=== PATIENT | male | born 1980 | race Caucasian/White ===

== ENCOUNTER 2018-10-04 18:57 | Emergency (ER) | payer SELFPAY ==
[2018-10-04] MEDS ORDERED: ACETAMINOPHEN 325 MG TABLET PO ONE (21:34)
[2018-10-04 22:15] LABS: APPEARANCE,URINE CLOUDY; BILIRUBIN,URINE NEGATIVE (NEGATIVE); COLOR,URINE YELLOW; GLUCOSE, URINE NEGATIVE (NEGATIVE); KETONES,URINE 20 mg/dL (NEGATIVE); LEUKOCYTE ESTERASE,URINE LARGE (NEGATIVE); NITRITE,URINE NEGATIVE (NEGATIVE); PROTEIN,URINE 30 mg/dL (NEGATIVE); URINE SPECIFIC GRAVITY 1.009; UROBILINOGEN,URINE NEGATIVE mg/dL (<2.0)
--- NOTE | 2018-10-04 22:37 | ER Document Report ---
ED General - General Chief Complaint: Pain With Urination Stated Complaint: PAIN WITH URINATION, HEADACHE Time Seen by Provider: 10/04/18 21:28 Notes: Patient is a 38-year-old male who presents to the emergency department with a chief complaint of pain with urination, mucus, headache, and a hard heartbeat. He started noticing the mucus and pain with urination yesterday. He is sexually active with his . He dates that he had a temperature of 100.4 at home. He has a history of kidney stones in the past. He dates that he does not have the same symptoms as he had when he had kidney stones before. He denies any nausea, vomiting, or diarrhea. TRAVEL OUTSIDE OF THE [place] IN LAST 30 DAYS: No - HPI Onset/Duration: Worse - Related Data Allergies/Adverse Reactions: No Known Allergies Allergy (Verified 10/04/18 19:00) Past Medical History - Social History Smoking Status: Unknown if Ever Smoked Chew tobacco use (# tins/day): No Drug Abuse: None Family History: Reviewed & Not Pertinent Patient has suicidal ideation: No Patient has homicidal ideation: No Renal/ Medical History: Reports: Hx Kidney Stones. Denies: Hx Peritoneal Dialysis Past Surgical History: Reports: Hx Appendectomy Review of Systems - Review of Systems Notes: REVIEW OF SYSTEMS: CONSTITUTIONAL : See HPI EENT: Denies eye, ear, throat, or mouth pain, discharge, or symptoms. Denies nasal or sinus congestion. CARDIOVASCULAR: Denies chest pain. RESPIRATORY: Denies shortness of breath, cough, congestion, difficulty breathing, or wheezing. GASTROINTESTINAL: Denies nausea, vomiting, and diarrhea. Denies abdominal pain. Denies constipation. GENITOURINARY: See HPI MUSCULOSKELETAL: Denies neck and back pain. Denies joint pain or swelling. SKIN: Denies rash, itchiness, or lesions HEMATOLOGIC : Denies easy bruising or bleeding. LYMPHATIC: Denies swollen, painful, enlarged glands. NEUROLOGICAL: Denies no numbness or tingling denies weakness. Denies headache. Denies altered mental status. Denies alteration in speech. PSYCHIATRIC: Denies stress, anxiety, alteration in sleep patterns, or depression. All other systems reviewed and negative. Physical Exam - Vital signs Vitals: Temp Pulse Resp BP Pulse Ox 98.6 F 94 16 149/92 H 99 10/04/18 19:29 10/04/18 19:29 10/04/18 19:29 10/04/18 19:29 10/04/18 19:29 - Notes Notes: PHYSICAL EXAMINATION: GENERAL: Appears unwell, healthy, well-nourished, no acute distress. HEAD: Normocephalic, atraumatic. EYES: PERRL, conjunctiva normal, all extraocular movements intact, sclera nonicteric ENT: Moist mucous membranes. NECK: Supple, no noticeable swelling, redness, rash. Normal range of motion. LUNGS: Equal breath sounds bilaterally and clear to auscultation. No wheezes rales or rhonchi. CARDIOVASCULAR: S1-S2, regular rate, regular rhythm. Radial pulses 2+, normal. ABDOMEN: Normoactive bowel sounds. Soft, mildly tender to lower abdomen, no guarding, no rebound tenderness, and no masses palpated. EXTREMITIES: Normal strength and range of motion, no pitting or edema. No cyanosis. NEUROLOGICAL: Moves all extremities upon command. Strength 5/5 in all extremities. PSYCH: Normal mood, normal affect. SKIN: Warm, dry. No rash, lesions, ulcerations noted. Normal skin turgor. Course - Re-evaluation Re-evalutation: 10/04/18 23:48 Based off of patient's history of multiple kidney stones, I am suspicious that he may have a stone and not realize it. His told me that that last time he had a stone he really did not have any symptoms. She actually found a stone in the toilet when he was diagnosed with nephrolithiasis 4 years ago. He has a l arge amount of blood and leukocytes in his urine. He stated his heart was pounding, therefore an EKG was done. His rhythm shows sinus rhythm at a rate of 86. 10/05/18 00:59 Patient's CAT scan does not show any kidney stones at this time, does show that he has acute cystitis. This is consistent with his urinalysis. I suspect the blood is also due to his acute cystitis. He will be started on antibiotics and sent home with return precautions. His gonorrhea and chlamydia results are negative. His states that she did not have a urinary tract infection and was treated with antibiotics. I have advised the patient and his to not have sex until he is done with his antibiotic treatment. Verbal discharge instructions were given to the patient. They verbalized understanding. They are stable for discharge. - Vital Signs Vital signs: Temp Pulse Resp BP Pulse Ox 98.6 F 80 20 114/82 98 10/04/18 19:29 10/05/18 01:48 10/05/18 01:48 10/05/18 01:48 10/05/18 01:48 - Laboratory Laboratory results interpreted by me: 10/04/18 21:49 Urine Protein 30 H Urine Ketones 20 H Urine Blood LARGE H Ur Leukocyte Esterase LARGE H - EKG Interpretation by Me Additional EKG results interpreted by me: Sinus rhythm. Heart rate 86. WI 148; QRS 102; QT 364; QTC 436. No ST elevations or depressions. Discharge - Discharge Clinical Impression: Urinary tract infection Qualifiers: Urinary tract infection type: acute cystitis Hematuria presence: with hematuria Qualified Code(s): N30.01 - Acute cystitis with hematuria Condition: Stable Disposition: HOME, SELF-CARE Additional Instructions: You were seen today in the emergency department for pain in addition. You have a urinary tract infection. You do not have gonorrhea or chlamydia. You have been prescribed doxycycline, an antibiotic for your urinary tract infection. Please take all your medication as prescribed. If you start to feel better, please continue to take your medications. You may take Motrin 600 mg and Tylenol 1000 mg every 6 hours as needed for pain or fever. Please follow-up with a urologist in regards to this visit, and to have history of kidney stones in the past. Please do not have sex until all your antibiotics are finished and your symptoms are gone. Please follow-up with your primary care provider in 3-5 days. Prescriptions: Doxycycline Hyclate 100 mg PO BID #14 capsule
[2018-10-04 23:34] LABS: CHLAM PCR NOT DETECTED (NOT DETECT); GON PCR NOT DETECTED (NOT DETECT)
--- NOTE | 2018-10-05 00:41 | RADIOLOGY REPORT (SQ) ---
CT ABDOMEN PELVIS WITH IV CONTRAST HISTORY: Hematuria. History of kidney stones. COMPARISON: None. TECHNIQUE: CT scan of the abdomen and pelvis with IV contrast. This exam was performed according to our departmental dose-optimization program, which includes automated exposure control, adjustment of the mA and/or kV according to patient size and/or use of iterative reconstruction technique. FINDINGS: The lung bases are clear. No pleural or pericardial effusions. The liver, spleen, and pancreas are unremarkable. No gallstones by CT criteria. No adrenal masses are identified. The kidneys are symmetric without hydronephrosis. Multiple small renal cysts are present in both kidneys. No ureteral or bladder stones are seen. There is mild wall thickening and inflammatory stranding surrounding the urinary bladder suggesting cystitis. No small bowel obstruction. There has been a prior appendectomy. The abdominal aorta is normal caliber. There are no suspicious osseous lesions identified. IMPRESSION: 1. Findings suggesting cystitis. Correlate with urinalysis to exclude UTI. 2. No urinary calculus or obstructive uropathy.
[2018-10-05] MEDS ORDERED: DOXYCYCLINE HYCLATE 100 MG TABLET PO ONE (01:22)
[2018-10-05 01:48] VITALS: BP 114/82
--- NOTE | 2018-10-05 13:36 | EKG REPORT ---
SEVERITY:- ABNORMAL ECG - SINUS RHYTHM PROBABLE LEFT ATRIAL ABNORMALITY LEFT AXIS DEVIATION LEFT VENTRICULAR HYPERTROPHY : Confirmed by: Summer Garcia MD 05-Oct-2018 13:36:10
== END 2018-10-05 01:50 | disposition home or self-care (01) ==
LOC: ER 18:57
DX: N30.01 Acute cystitis with hematuria (principal); R30.9 Painful micturition, unspecified; R51 Headache
CPT/HCPCS: 74177; 81001; 87491; 87591; 93005; 93010; 99284

== ENCOUNTER 2019-01-15 20:41 | Emergency (ER) | payer SELFPAY ==
--- NOTE | 2019-01-15 21:59 | RADIOLOGY REPORT (SQ) ---
EXAM DESCRIPTION: XR HAND 3 OR MORE VIEWS COMPLETED DATE/TME: 01/15/2019 21:21 CLINICAL HISTORY: 38 years, Male, pain COMPARISON: None. NUMBER OF VIEWS: 3 TECHNIQUE: 3 views of the right hand LIMITATIONS: None. FINDINGS: Mildly displaced and angulated fracture deformities of the distal fourth and fifth metacarpals with associated soft tissue swelling. No dislocation. IMPRESSION: Distal fourth and fifth metacarpal fractures. copyright 2010 [employer]- All Rights Reserved
--- NOTE | 2019-01-15 22:35 | ER Document Report ---
HPI - HPI Time Seen by Provider: 01/15/19 22:29 Pain Level: 4 Notes: Patient is a 38-year-old male who presents with right hand swelling after he states he punched a garage door yesterday. Patient reports minimal pain, states that he believes there is a broken bone in there. Patient denies any history of previous fractures to this area. - REPRODUCTIVE Reproductive: DENIES: : Past Medical History - General Information source: Patient - Social History Smoking Status: Never Smoker Family History: Reviewed & Not Pertinent Renal/ Medical History: Reports: Hx Kidney Stones. Denies: Hx Peritoneal Dialysis Past Surgical History: Reports: Hx Appendectomy - Immunizations Immunizations up to date: Yes Vertical Provider Document - CONSTITUTIONAL Notes: PHYSICAL EXAMINATION: GENERAL: Well-appearing, well-nourished and in no acute distress. HEAD: Atraumatic, normocephalic. EYES: Pupils equal round extraocular movements intact, conjunctiva are normal. ENT: Nares patent NECK: Normal range of motion LUNGS: No respiratory distress Musculoskeletal: Normal range of motion swelling noted to, right hand specifically near the fourth and fifth metacarpals. No erythema or ecchymosis noted. Normal radial pulse, normal cap refill. Patient has normal sensation and motor function distal to injury. NEUROLOGICAL: Normal speech, normal gait. PSYCH: Normal mood, normal affect. SKIN: Warm, Dry, normal turgor, no rashes or lesions noted. - INFECTION CONTROL TRAVEL OUTSIDE OF THE [place] IN LAST 30 DAYS: No Course - Re-evaluation Re-evalutation: X-rays show positive fourth and fifth metacarpal fractures of the right hand. These are nondisplaced. Patient will be placed in a splint and discharged home. Follow-up with [facility]. - Vital Signs Vital signs: Temp Pulse Resp BP Pulse Ox 97.9 F 61 18 165/103 H 99 01/15/19 21:45 01/15/19 21:45 01/15/19 21:45 01/15/19 21:45 01/15/19 21:45 Procedures - Immobilization Right hand Pre-Proc Neuro Vasc Exam: Normal Immobilizer type: Ulnar Performed by: PCT Post-Proc Neuro Vasc Exam: Normal Alignment checked and good: Yes Discharge - Discharge Clinical Impression: Metacarpal bone fracture Qualifiers: Encounter type: initial encounter Metacarpal bone: unspecified metacarpal Fracture type: closed Metacarpal location: unspecified portion of metacarpal Fracture morphology: unspecified fracture morphology Qualified Code(s): S62.309A - Unspecified fracture of unspecified metacarpal bone, initial encounter for closed fracture Condition: Stable Disposition: HOME, SELF-CARE Additional Instructions: Fractured Metacarpal You have broken a metacarpal bone in the hand. The fracture is usually caused by hitting the hand against a hard surface, but can also be caused by jamming a finger. At first the injury should be rested, elevated, and ice packed. The usual treatment is splinting for four to six weeks. For some patients, a cast is preferable. The physician will advise you. It's important to avoid any twisting or jamming of the fingers while the fracture is healing. Force on the fingers can make the fracture move. Usually, one or two fingers are included in the splint or cast. Sometimes fingers are taped instead -- in this case, extra caution to prevent a twisting of the fingers is necessary. Call the doctor or come back if swelling or pain become severe, if numbness develops, or if you suspect you may have disturbed the fracture. Ice & Elevation Apply ice packs frequently against the painful area. Many different schedules are recommended, such as "20 minutes on, 20 minutes off" or "one hour ice, two hours rest." If you need to work, you may need to go longer between ice treatments. You should plan to have the area ice packed AT LEAST one-fourth of the time. The ice should be applied over the wrap, tape, or splint, or over a layer of cloth -- not directly against the skin. Some ice bags have a built-in cloth and can be put directly on the skin. Your injured part should be elevated as much as possible over the next 48 hours. Try to keep the injury above the level of the heart. Avoid use of the injured area. Elevation and rest will decrease the swelling. Temporary Splint A splint has been applied for protection. This is a temporary measure to allow the healing to begin. Once the area can be moved painfree, you can put the splint aside. As you begin to use the injured part, be careful not to put so much stress on it that it hurts. If routine use causes pain, put the splint back on! If you can't use the part without pain after several days' rest, or if the injury is not completely painfree within a week or two, please return for re- examination. If there is unexpected severe pain, numbness, discoloration, or swelling beyond the splint, you should call the doctor or return at once. Please keep the splint in place until cleared by orthopedics. Take ibuprofen 600 mg every 6 hours for pain and inflammation. Continue to elevate the extremity, apply ice 20 minutes on 20 minutes off as outlined above. Referrals: MARIANN GOFF, [ACTIVE STAFF] - Follow up as needed
[2019-01-15 22:49] VITALS: BP 165/97
== END 2019-01-15 22:49 | disposition home or self-care (01) ==
LOC: ER 20:41
PROC: 2W3CX1Z Immobilization of Right Lower Arm using Splint (ICD-10-PCS; principal; 2019-01-15)
DX: S62.394A Other fracture of fourth metacarpal bone, right hand, initial encounter for closed fracture (principal); S62.396A Other fracture of fifth metacarpal bone, right hand, initial encounter for closed fracture; M79.641 Pain in right hand; W22.8XXA Striking against or struck by other objects, initial encounter
CPT/HCPCS: 99283

== ENCOUNTER 2019-09-12 18:52 | Emergency (ER) | payer SELFPAY ==
[2019-09-12] MEDS ORDERED: ACETAMINOPHEN 325 MG TABLET PO ONE (20:23)
[2019-09-12] MEDS ORDERED: NORMAL SALINE 1000 ML 1,000 ML IV ONE (20:24)
--- NOTE | 2019-09-12 20:27 | ER Document Report ---
ED Medical Screen (RME) - General Chief Complaint: fevers Stated Complaint: FEVER,COUGH,CONGESTION Time Seen by Provider: 09/12/19 20:19 Mode of Arrival: Ambulatory Information source: Patient Notes: 39-year-old male presented to ED for complaint of cough cold congestion fever body aches headache for 2 days. He states he is having temperature over 104 on and off yesterday and today. He states he took ibuprofen about 630 his temperature right now is 101.5. I have greeted and performed a rapid initial assessment of this patient. A comprehensive ED assessment and evaluation of the patient, analysis of test results and completion of medical decision making process will be conducted by an additional ED providers. TRAVEL OUTSIDE OF THE [place] IN LAST 30 DAYS: No - Related Data Allergies/Adverse Reactions: No Known Allergies Allergy (Verified 10/04/18 19:00) Past Medical History - Social History Chew tobacco use (# tins/day): No Frequency of alcohol use: Occasional Drug Abuse: None Renal/ Medical History: Reports: Hx Kidney Stones. Denies: Hx Peritoneal Dialysis Past Surgical History: Reports: Hx Appendectomy - Immunizations Immunizations up to date: Yes Physical Exam - Vital signs Vitals: Temp Pulse Resp BP Pulse Ox 99.6 F 114 H 16 157/88 H 96 09/12/19 18:55 09/12/19 18:55 09/12/19 18:55 09/12/19 18:55 09/12/19 18:55 Course - Vital Signs Vital signs: Temp Pulse Resp BP Pulse Ox 101.5 F H 90 18 145/97 H 97 09/12/19 20:23 09/12/19 20:23 09/12/19 20:23 09/12/19 20:23 09/12/19 20:23
[2019-09-12 21:15] LABS: ABSOLUTE BASOPHILS # (AUTO) 0.1 10^3/uL (0.0-0.2); ABSOLUTE EOSINOPHILS # (AUTO) 0.1 10^3/uL (0.0-0.6); ABSOLUTE LYMPHOCYTES (AUTO) 1.2 10^3/uL (0.5-4.7); ABSOLUTE MONOCYTES (AUTO) 1.1 10^3/uL (0.1-1.4); ABSOLUTE NEUT (AUTO) 9.5 10^3/uL (1.7-8.2); BASOPHILS % (AUTO) 0.5 % (0-2); EOSINOPHILS % (AUTO) 0.6 % (0-6); HEMATOCRIT 44.5 % (37.9-51.0); HEMOGLOBIN 15.6 g/dL (13.5-17.0); LYMPHOCYTES % (AUTO) 9.9 % (13-45); MEAN CORPUSCULAR HGB CONC 35.1 g/dL (32.0-36.0); MEAN CORPUSCULAR VOLUME 91 fl (80-97); PLATELET COUNT 173 10^3/uL (150-450); RED BLOOD COUNT 4.88 10^6/uL (4.35-5.55); TOTAL CELLS COUNTED % (AUTO) 100 %; WHITE BLOOD COUNT 11.9 10^3/uL (4.0-10.5)
[2019-09-12 21:17] LABS: APPEARANCE,URINE CLEAR; BILIRUBIN,URINE NEGATIVE (NEGATIVE); COLOR,URINE YELLOW; GLUCOSE, URINE NEGATIVE (NEGATIVE); KETONES,URINE NEGATIVE (NEGATIVE); PROTEIN,URINE 100 mg/dL (NEGATIVE); URINE SPECIFIC GRAVITY 1.016
--- NOTE | 2019-09-12 21:22 | RADIOLOGY REPORT (SQ) ---
EXAM DESCRIPTION: [facility]: XR CHEST 2 VIEWS Views: 2 CLINICAL HISTORY: 39 years Male, cough fever COMPARISON: None. FINDINGS: There is a very subtly increased density in the posterior left lower lobe. No consolidation. No pneumothorax or pleural effusion. Cardiomediastinal silhouette is within normal limits. Bony structures are unremarkable for age. IMPRESSION: 1. Subtly increased density in the left lower lobe, suspicious for mild pneumonia. Please correlate with clinical symptoms.
[2019-09-12 21:27] LABS: ALBUMIN 4.3 g/dL (3.5-5.0); ALKALINE PHOSPHATASE 84 U/L (38-126); ANION GAP 14 (5-19); ASPARTATE AMINO TRANSFERASE 57 U/L (17-59); BILIRUBIN,DIRECT 0.2 mg/dL (0.0-0.4); BILIRUBIN,TOTAL 0.9 mg/dL (0.2-1.3); BLOOD UREA NITROGEN 12 mg/dL (7-20); CALCIUM 9.4 mg/dL (8.4-10.2); CARBON DIOXIDE 27 mmol/L (22-30); CHLORIDE 101 mmol/L (98-107); GLUCOSE 112 mg/dL (75-110); POTASSIUM 3.7 mmol/L (3.6-5.0); TOTAL PROTEIN 7.8 g/dL (6.3-8.2)
[2019-09-12 21:35] LABS: A TYPE INFLUENZA AG NEGATIVE (NEGATIVE); B INFLUENZA AG NEGATIVE (NEGATIVE)
[2019-09-13] MEDS ORDERED: IBUPROFEN 600 MG TABLET PO ONE (00:25)
--- NOTE | 2019-09-13 00:52 | ER Document Report ---
ED General - General Chief Complaint: fevers Stated Complaint: FEVER,COUGH,CONGESTION Time Seen by Provider: 09/12/19 20:19 Primary Care Provider: [facility] [Provider Group] - Follow up in 1 week [facility] [Provider Group] - Follow up in 1 week Mode of Arrival: Ambulatory Notes: Patient is a 39-year-old male who presents to the emergency department with a chief complaint of body aches, fever, cough and cold symptoms. Patient also states that fever has been going on for 2 days now. He had a temperature of 104 yesterday. He has been taking ibuprofen to help with his pain and headache. Patient states that his cough has been going on for the past 4 to 5 days denies any past medical history. He does not take any medications, other than ibuprofen he has been on. Denies smoking, drug, or alcohol use. TRAVEL OUTSIDE OF THE [place] IN LAST 30 DAYS: No - Related Data Allergies/Adverse Reactions: No Known Allergies Allergy (Verified 10/04/18 19:00) Past Medical History - General Information source: Patient - Social History Smoking Status: Never Smoker Chew tobacco use (# tins/day): No Frequency of alcohol use: Occasional Drug Abuse: None Family History: Reviewed & Not Pertinent Patient has suicidal ideation: No Patient has homicidal ideation: No Renal/ Medical History: Reports: Hx Kidney Stones. Denies: Hx Peritoneal Dialysis Past Surgical History: Reports: Hx Appendectomy - Immunizations Immunizations up to date: Yes Review of Systems - Review of Systems Notes: REVIEW OF SYSTEMS: CONSTITUTIONAL : See HPI. EENT: Denies eye, ear, throat, or mouth pain, discharge, or symptoms. Denies nasal or sinus congestion. CARDIOVASCULAR: Denies chest pain. RESPIRATORY: See HPI. GASTROINTESTINAL: Denies nausea, vomiting, and diarrhea. Denies abdominal pain. Denies constipation. GENITOURINARY: Denies difficulty urinating, burning, blood in urine, urgency or frequency. MUSCULOSKELETAL: Denies neck and back pain. Denies joint pain or swelling. SKIN: Denies rash, itchiness, or lesions HEMATOLOGIC : Denies easy bruising or bleeding. LYMPHATIC: Denies swollen, painful, enlarged glands. NEUROLOGICAL: Denies no numbness or tingling denies weakness. Denies headache. Denies altered mental status. Denies alteration in speech. PSYCHIATRIC: Denies stress, anxiety, alteration in sleep patterns, or depression. All other systems reviewed and negative. Physical Exam - Vital signs Vitals: Temp Pulse Resp BP Pulse Ox 99.6 F 114 H 16 157/88 H 96 09/12/19 18:55 09/12/19 18:55 09/12/19 18:55 09/12/19 18:55 09/12/19 18:55 - Notes Notes: PHYSICAL EXAMINATION: GENERAL: Appears well, healthy, well-nourished, no acute distress. HEAD: Normocephalic, atraumatic. EYES: PERRL, conjunctiva normal, all extraocular movements intact, sclera nonicteric ENT: Moist mucous membranes. NECK: Supple, no noticeable swelling, redness, rash. Normal range of motion. LUNGS: Coarse breath sounds noted to left lower lobe. Clear upper left and right lobes. CARDIOVASCULAR: S1-S2, regular rate, regular rhythm. Radial pulses 2+, normal. ABDOMEN: Normoactive bowel sounds. Soft, nontender, no guarding, no rebound tenderness, and no masses palpated. EXTREMITIES: Normal strength and range of motion, no pitting or edema. No cy anosis. NEUROLOGICAL: Moves all extremities upon command. Strength 5/5 in all extremities. PSYCH: Normal mood, normal affect. SKIN: Warm, dry. No rash, lesions, ulcerations noted. Normal skin turgor. Course - Re-evaluation Re-evalutation: Patient has a mild leukocytosis of 11,900 with a shift to the left. Lactic acid is normal. Chemistries are also normal. Urinalysis ordered in triage shows a small amount of blood and he does have protein in his urine, most likely due to dehydration. Influenza screen and rapid strep are both negative. Chest x-ray shows mild pneumonia to left lower lobe. Due to the patient's clinical presentation of being tachycardic and a fever of 104, he will be started on doxycycline. He does not have a primary care provider. [facility] [place] in regards to this visit. He will also be given Tessalon Perles to help soothe his cough. He is in agreement with this plan. Follow-up precautions were given. Verbal discharge instructions were given to the patient. They verbalized understanding. They are stable for discharge. - Vital Signs Vital signs: Temp Pulse Resp BP Pulse Ox 100.1 F 86 16 109/62 96 09/13/19 01:28 09/13/19 01:28 09/13/19 01:28 09/13/19 01:28 09/13/19 01:28 - Laboratory Result Diagrams: 09/12/19 20:35 09/12/19 20:35 Laboratory results interpreted by me: 09/12/19 09/12/19 09/12/19 20:35 20:35 20:45 WBC 11.9 H Lymph % (Auto) 9.9 L Absolute Neuts (auto) 9.5 H Seg Neutrophils % 80.0 H Glucose 112 H Urine Protein 100 H Urine Blood SMALL H Urine Urobilinogen 2.0 H Discharge - Discharge Clinical Impression: Cough Pneumonia Qualifiers: Pneumonia type: due to unspecified organism Laterality: left Lung location: lower lobe of lung Qualified Code(s): J18.9 - Pneumonia, unspecified organism Condition: Stable Disposition: HOME, SELF-CARE Additional Instructions: You have been diagnosed with a pneumonia. It is very important that you take a ll of your antibiotics until they are gone even if you are feeling better. Please return to the emergency department immediately if you began having worsening shortness of breath, become confused, have worsening pain, pass out, have persistent vomiting that prevents you from being able to drink fluids for more than 12 hours, or have any other symptoms that are worrisome to you. Please follow-up with your primary care doctor in the next 1-2 days. You are also being sent home with a prescription for Tessalon Perles, this will help you with your cough. You are also being sent home with an inhaler. You can take 1 puff every 4-6 hours as needed for shortness of breath. Prescriptions: Benzonatate [Tessalon Perles 100 mg Capsule] 100 mg PO Q8HP PRN #40 capsule PRN Reason: Doxycycline Hyclate 100 mg PO BID #14 capsule Forms: Return to Work Referrals: [facility] [Provider Group] - Follow up in 1 week [facility] [Provider Group] - Follow up in 1 week
[2019-09-13] MEDS ORDERED: DOXYCYCLINE HYCLATE 100 MG TABLET PO ONE (01:01)
[2019-09-13] MEDS ORDERED: BENZONATATE 100 MG CAPSULE PO ONE (01:01)
[2019-09-13] MEDS ORDERED: ALBUTEROL SULFATE HFA (90 MCG/PUFF) 8 GM MDI (1 MDI/ER DISP) IH PRN (01:02)
[2019-09-13 01:17] VITALS: BP 109/62
== END 2019-09-13 01:28 | disposition home or self-care (01) ==
LOC: ER 18:52
DX: J18.9 Pneumonia, unspecified organism (principal); R50.9 Fever, unspecified; M79.10 Myalgia, unspecified site; Z87.442 Personal history of urinary calculi
CPT/HCPCS: 99283; 96360; 36415; 87070; 87880; 85025; 80053; 81001; 83605; 87804; 71046; J7030; J3490